=== PATIENT | male | born 2000 | race Hispanic/Latino ===

== ENCOUNTER 2022-07-09 03:53 | Emergency (ER) | payer SELFPAY ==
[2022-07-09] MEDS ORDERED: Lidocaine 1% w/Epinephrine 1:100K 20 ML VIAL ONE (05:08)
[2022-07-09] MEDS ORDERED: Boostrix 0.5 ML (Tdap) VIAL (>/=7 yrs of age) ONE (05:12)
== END 2022-07-09 06:45 | disposition home or self-care (01) ==
LOC: ERS 03:53
DX: S01.81XA Laceration without foreign body of other part of head, initial encounter (principal); F10.129 Alcohol abuse with intoxication, unspecified; Y04.8XXA Assault by other bodily force, initial encounter; Z23 Encounter for immunization
CPT/HCPCS: 12013; 70450; 90471; 90715

== ENCOUNTER 2022-07-15 16:24 | Emergency (ER) | payer SELFPAY | END 2022-07-15 17:13 | disposition home or self-care (01) | LOC: ERS 16:24 | DX: S01.81XD Laceration without foreign body of other part of head, subsequent encounter (principal); Y93.89 Activity, other specified ==

== ENCOUNTER 2023-07-01 03:15 | Emergency (ER) | payer OTHER, SELFPAY | END 2023-07-01 03:51 | LOC: EEVIPCON 03:15 → ERS 03:15 | DX: R45.1 Restlessness and agitation (principal) | CPT/HCPCS: 99284 ==